=== PATIENT | male | born 1980 | race Caucasian/White ===

== ENCOUNTER → 2024-10-17 12:54 | Emergency (ER) | payer SELFPAY ==
[2024-10-17 12:56] VITALS: BP 128/88
--- NOTE | 2024-10-17 13:40 | EDRN ---
Received patient on stretcher talking to himself. Patient intermittently answering questions. Patient denies thoughts of suicide or wanting to hurt others. Patient stated 'I need somewhere to live.' Patient's mother stated that the patient was
released out of long term for 2 or 3 months and just 'showed up at my house and they did nothing to get him somewhere to live. He needs somewhere to live that will make him take his medications. I know that he has not been taking them unless someone
gives them to him.'
--- NOTE | 2024-10-17 14:09 | ED.GENMED ---
History of Present Illness
General
Chief Complaint: Crisis Evaluation
Source: patient and family
Exam Limitations: none
Time Seen by Provider: 10/17/24 13:38
Nursing documentation reviewed up to this point in time: agreed with
History of Present Illness
History of Present Illness:
44-year-old male with past medical history of bipolar disorder presents to the emergency department with his mother for evaluation of delusions. When asked the patient why he is here he says 'because my mother brought me.' He says that he does not
feel that he has any problems and does not need to be here. According to his mother, he has a history of substance use but has been clean since incarceration. Apparently has a history of bipolar disorder and she has noted that he is delusional and
not taking care of himself�she says he is not taking his medications and is [address]. He says 'I was taking my medicines but then they healed me--they can heal you.' He says that he believes that he is an jose. Denies suicidality or
homicidality. Denies physical complaints.
Review of Systems
Review of Systems
All Other Systems: ROS reviewed and negative except as documented in HPI and ROS
Respiratory: Denies trouble breathing
Cardiac: Denies chest pain
ABD/GI: Denies abdominal pain
Musculoskeletal: Denies neck pain or back pain
Neurological: Denies headache
Psychiatric: Denies depression or suicidal
Phy Exam
Physical Exam
Physical Exam:
General: Awake, alert; unkempt but in no acute distress
Head: Normocephalic, atraumatic
Eyes: Conjunctiva normal, EOMI, pupils equal round and reactive to light bilaterally
Throat: Airway intact, handling secretions
Neck: Trachea midline, supple without meningismus
Lungs: Clear to auscultation bilaterally, no wheezing, rales, rhonchi
Heart: Regular rate and rhythm, no murmurs, gallops, or rubs
Neuro: No gross deficits
Extremities: Warm and well-perfused
Psych: 'Fine' mood, somewhat withdrawn affect, delusional
Scores
Heart Failure Risk
Heart Failure Risk Score: Not Applicable
Heart Score for Chest Pain Patients
STEMI patient?: Not applicable
Withdrawal Assessment of Alcohol
Withdrawal Assessment Completed?: Not applicable
Course
Orders/Labs/Results
Orders:
Orders
10/17/24 13:30
Crisis Consult Urgent
Reason for Consult: hallucinations
Comment: h/o bipolar schizophrenia
Vital Signs
Initial and Last Documented VS:
Initial Vital Signs
Temp Pulse Resp BP Pulse Ox
37.1 C 96 16 128/88 100
10/17/24 12:56 10/17/24 12:56 10/17/24 12:56 10/17/24 12:56 10/17/24 12:56
Last Documented Vital Signs
Temp Pulse Resp BP Pulse Ox
37.1 C 96 16 128/88 100
10/17/24 12:56 10/17/24 12:56 10/17/24 12:56 10/17/24 12:56 10/17/24 12:56
MDM/Problems Addressed
Differential Diagnosis Includes:
Schizophrenia, drug use, shamar
MDM/Problems Addressed:
44-year-old male presents for evaluation of delusions, mother says he is not taking care of himself, living on the street and not taking his medicine. Vitals and exam as above. Case discussed with crisis for assessment�denies suicidality or
homicidality and clearly has delusions but at this point does not seem to be a danger to himself or others. While he is not taking his psychiatric medications and is living on the [address] he seems to be able to at least verbalize some reasoning
although his judgment is clearly poor. No clear grounds for involuntary psychiatric admission at this point, patient is willing to stay and have our crisis team evaluate him. Will monitor pending crisis eval.
Patient decided to leave the emergency room�no longer wishes to stay for psychiatric assessment and does not feel he needs to be in hospital. Does not clearly exhibit signs that he is a danger to himself or others and based on what I have observed
here there is no clear grounds for filing a 302/involuntary psychiatric treatment. Mother is concerned for patient's ability to care for himself and is filing a 302 with our crisis team based on her observations. Police called to return patient to
the ER.
Chronic conditions affecting care:
Bipolar disorder
*Pulse Oximetry
Patient hypoxic: no
*Critical Care Note
Total Time (30-74mins, 75-104mins- exclusive of procedures): Not Applicable
Data Reviewed
Source: patient and family
Patient Management
Discussion with other providers: Other (Discussed with crisis staff)
ED Attending Note
-
Portions of this chart may have been created with voice recognition software.� Occasional wrong word or��sound alike� substitutions may have occurred due to the inherent limitations of voice recognition software.
Discharge Plan
Interventions
Interventions:
*Risk Screen - Suicide Last Done: 10/17/24 12:56
*General Assessment Last Done: 10/17/24 12:56
*Neglect/Abuse Screening Last Done: 10/17/24 12:56
*ED- Fall Risk Assessment Last Done: 10/17/24 13:27
*ED COVID-19 Vaccine History Last Done: 10/17/24 12:56
ED-Psychological Assessment Last Done: 10/17/24 13:26
Discharge Date and Time
Print Language: MACEDONIAN
--- NOTE | 2024-10-17 14:50 | EDRN ---
1430: Patient left his room. Patient stated 'I'm out of here. I'm not staying here any longer. I need to go smoke.' Patient left and went outside.
1440: Patient brought back to room 39. Patient asked where his mother is. Told patient that she is over in the Crisis department talking to them. Spoke to ED charge account authorizer and was told to move patient to Crisis room 2. Explained to patient that I was
going to walk him to a new room located in the Crisis department and his mother would be with him after she was done speaking to them. Patient willingly walked to Crisis leftand then refused to go into the room and left. Attempted to bring patient
back into the ED. Patient refusing to come back inside. Spoke to . Patient is not a 302. ED station jailer notified.
== END | disposition left against medical advice (07) ==
LOC: EMR 12:54
PROVIDERS: EMERGENCY PHYSICIAN Emergency Medicine
DX: F22 Delusional disorders (principal); F31.9 Bipolar disorder, unspecified
CPT/HCPCS: 99282

== ENCOUNTER 2024-10-17 16:18 | Emergency (ER) | payer MEDICARE, SELFPAY ==
--- NOTE | 2024-10-17 16:23 | ED.GENMED ---
History of Present Illness
General
Chief Complaint: Psychiatric Problem
Source: patient and family
Exam Limitations: none
Time Seen by Provider: 10/17/24 16:23
Nursing documentation reviewed up to this point in time: agreed with
History of Present Illness
History of Present Illness:
44-year-old male with history as noted returns to the emergency room on 302. Seen by me earlier for delusions, mother says noncompliant with his psych medications and currently homeless. He eloped from the emergency room, mother was concerned
based on her observations for patient's safety and filed a 302 with crisis which was upheld by delegate. Patient says 'my mom 302'd me, that's the only reason I am here.' He feels he does not need to be here. Denies suicidality or homicidality.
Denies drug or alcohol use.
Review of Systems
Review of Systems
All Other Systems: ROS reviewed and negative except as documented in HPI and ROS
Cardiac: Denies chest pain
ABD/GI: Denies abdominal pain
: Denies flank pain
Musculoskeletal: Denies neck pain or back pain
Neurological: Denies headache
Psychiatric: Denies suicidal
Phy Exam
Physical Exam
Physical Exam:
General: Awake, alert; unkempt but in no acute distress
Head: Normocephalic, atraumatic
Eyes: Conjunctiva normal
Throat: Airway intact, handling secretions
Neck: Trachea midline
Neuro: No gross deficits
Psych: 'okay' mood, somewhat withdrawn affect, delusional
Scores
Heart Failure Risk
Heart Failure Risk Score: Not Applicable
Heart Score for Chest Pain Patients
STEMI patient?: Not applicable
Withdrawal Assessment of Alcohol
Withdrawal Assessment Completed?: Not applicable
Course
Orders/Labs/Results
Orders:
Orders
10/17/24 16:28
ED Special Safety Observation ONCE
Observation level: One to One
Drug Screen, Urine [Urine Drug Abuse Screen] Urgent
10/17/24 16:29
Crisis Consult Routine
Reason for Consult: delusions, 302
10/17/24 17:53
Acetaminophen Urgent
Alcohol Urgent
Complete Blood Count/With Diff Urgent
Comprehensive Metabolic Panel Urgent
Salicylate Urgent
Abnormal Lab Results
10/17/24
17:53
RBC 4.58 L 10^6/uL
(4.70-6.10)
MCH 32.3 H pg
(27.0-31.0)
Absolute Monos (auto) 0.7 H 10^3/uL
(0.1-0.6)
Chloride 108 H mmol/L
(98-107)
Glucose 101 H mg/dl
(70-99)
Salicylates < 1.0 L mg/dl
(2.0-20.0)
Acetaminophen < 10 L ug/ml
(10-30)
10/17/24 17:53
10/17/24 17:53
Vital Signs
Initial and Last Documented VS:
Initial Vital Signs
Temp Pulse Resp BP Pulse Ox
36.6 C 64 16 127/85 98
10/17/24 17:16 10/17/24 17:16 10/17/24 17:16 10/17/24 17:16 10/17/24 17:16
Last Documented Vital Signs
Temp Pulse Resp BP Pulse Ox
36.6 C 64 16 127/85 98
10/17/24 17:16 10/17/24 17:16 10/17/24 17:16 10/17/24 17:16 10/17/24 17:16
MDM/Problems Addressed
Differential Diagnosis Includes:
Psychosis, drug use, shamar
MDM/Problems Addressed:
44-year-old male presents to the emergency room after eloping earlier; mother filed a 302 and police were called to return him to the emergency room. Mother's concern for patient safety due to delusions, failure to take his medication and the fact
that he is living on the [place]. He denies being homicidal or having suicidal thoughts. While he is delusional and has poor insight/judgment he does not obviously appear to be a danger to himself or others based on my limited observations here but
mother is very concerned based on which she has seen. Will have telepsychiatry evaluate. Monitor on one-to-one observation. Plan for inpatient psychiatric placement.
Labs reviewed and unremarkable. Telepsych evaluation done, waiting for the report. Patient resting comfortably. Continue to monitor.
Telepsychiatry recommending inpatient psychiatric treatment. Monitor pending placement.
Chronic conditions affecting care:
Bipolar
*Pulse Oximetry
Patient hypoxic: no
*Critical Care Note
Total Time (30-74mins, 75-104mins- exclusive of procedures): Not Applicable
Data Reviewed
Source: patient and family
Patient Management
Discussion with other providers: Other (Discussed with crisis staff)
Escalation/DeEscalation of care consider admission/obs:
Inpatient psychiatric treatment indicated
ED Attending Note
-
Portions of this chart may have been created with voice recognition software.� Occasional wrong word or��sound alike� substitutions may have occurred due to the inherent limitations of voice recognition software.
Discharge Plan
Departure
Patient Disposition: Psych Facility
Date of Disposition: 10/17/24
Time of Disposition: 16:23
Discharge Problem:
Delusions
Interventions
Interventions:
*Risk Screen - Suicide Last Done: 10/17/24 17:16
*General Assessment Last Done: 10/17/24 17:16
*Neglect/Abuse Screening Last Done: 10/17/24 17:16
*ED COVID-19 Vaccine History Last Done: 10/17/24 17:16
ED-Psychological Assessment Last Done: 10/17/24 17:18
Discharge Date and Time
Print Language: TURKMEN
[2024-10-17 17:16] VITALS: BP 127/85
--- NOTE | 2024-10-17 17:55 | EDRN ---
Blood work drawn and sent. Pt given cup for urine spec. Telepsyche just cAlled into room to interview pt. Pt started speaking fast, loud and aggressive to telepsyche and swearing throughout his speech.
[2024-10-17 18:01] LABS: % Basophils 0.5 % (0-2); % Eosinophils 0.9 % (0-6); % Immature Granulocytes 0.2 % (0-0.5); % Lymphocytes 36.9 % (20.5-51.1); % Monocytes 9.1 % (1.7-9.3); % Neutrophils 52.4 % (42.2-75.2); Absolute Eosinophils 0.1 10^3/uL (0-0.7); Absolute Monocytes 0.7 10^3/uL (0.1-0.6); Absolute Neutrophils 4.3 10^3/uL (1.4-6.5); Hematocrit 42.2 % (39.0-52.0); Hemoglobin 14.8 g/dL (13.0-18.0); Mean Corp Hgb Conc. 35.1 g/dL (33.0-37.0); Mean Corpuscular Hgb 32.3 pg (27.0-31.0); Mean Corpuscular Volume 92.1 fL (80.0-94.0); Mean Platelet Volume 9.5 fL (7.4-10.4); Nucleated Red Blood Cells % 0 % (-); Platelet Count 302 10^3/uL (130-400); Red Blood Cell Count 4.58 10^6/uL (4.70-6.10); Red Cell Dist. Width 13.7 % (11.5-14.5); White Blood Cell Count 8.1 10^3/uL (4.8-10.8)
[2024-10-17 18:12] LABS: Chloride 108 mmol/L (98-107); Potassium 3.9 mmol/L (3.5-5.1); Sodium 139 mmol/L (135-145)
[2024-10-17 18:15] LABS: ALT (SGPT) 14 U/L (0-50); AST (SGOT) 18 U/L (17-59); Acetaminophen < 10 ug/ml (10-30); Albumin 3.9 g/dl (3.5-5.0); Alkaline Phosphatase 72 U/L (38-126); Blood Urea Nitrogen 9 mg/dl (9-20); Calcium 9.7 mg/dl (8.4-10.2); Carbon Dioxide 27 mmol/L (22-30); Glucose 101 mg/dl (70-99); Salicylate < 1.0 mg/dl (2.0-20.0); Total Bilirubin 0.5 mg/dl (0.2-1.3); Total Protein 6.8 g/dl (6.3-8.2); eGFR > 60.00
[2024-10-17 18:16] LABS: Alcohol None Detected
--- NOTE | 2024-10-17 18:28 | EDRN ---
Pt given urine cup for urine sample as telepsyche is finished. Pt ate all his supper.
--- NOTE | 2024-10-18 09:50 | EDRN ---
Patient refused vital signs prior to discharge.
== END 2024-10-18 09:54 ==
LOC: EMR 16:18
PROVIDERS: EMERGENCY PHYSICIAN Emergency Medicine
DX: F22 Delusional disorders (principal); Z59.02 Unsheltered homelessness; Z91.148 Patient's other noncompliance with medication regimen for other reason
CPT/HCPCS: 99285; 80053; 80143; 80179; 82077; 85025